=== PATIENT | male | born 1955 | race Caucasian/White ===

== ENCOUNTER 2019-11-05 13:10 | Outpatient (CLI) | payer MEDICARE, SELFPAY | END 2019-11-05 13:11 | disposition home or self-care (01) | LOC: WOUND 13:16 | PROVIDERS: Visit Provider Emergency Medicine | DX: E11.621 Type 2 diabetes mellitus with foot ulcer (principal); L97.512 Non-pressure chronic ulcer of other part of right foot with fat layer exposed | CPT/HCPCS: 11042; 87070; 87077; 87176; 87186; 87205; G0463; L3260 ==

== ENCOUNTER 2019-11-10 11:16 | Outpatient (CLI) | payer MEDICARE, SELFPAY ==
[2019-11-10 12:51] LABS: Alanine Aminotransferase 54 U/L (0-41); Albumin Level 3.8 g/dL (3.5-5.2); Alkaline Phosphatase 91 IU/L (40-130); Anion Gap 16.1 (5-19); Aspartate Amino Transferase 22 U/L (0-40); Blood Urea Nitrogen 52 mg/dL (8-23); Calcium 9.6 mg/dL (8.5-10.5); Carbon Dioxide 24 mmol/L (22-29); Chloride 103 mmol/L (98-107); Globulin 4.1 g/dL (1.3-4.6); Glomerular Filtration Rate 21.9 mL/min (90-130); Glucose 123 mg/dL (65-115); Osmolality Calculated 301 mOsm/kg (285-295); Potassium 5.1 mmol/L (3.5-5.1); Sodium 138 mmol/L (136-145); Total Bilirubin 0.3 mg/dL (0.15-1.2); Total Protein 7.9 g/dL (6.6-8.7)
[2019-11-10 13:16] LABS: Prealbumin 24.5 mg/dL (20-40)
== END 2019-11-10 11:17 | disposition home or self-care (01) ==
LOC: LAB 11:23
PROVIDERS: PCP Internal Medicine; Visit Provider Nurse Practitioner Family
DX: E11.9 Type 2 diabetes mellitus without complications (principal)
CPT/HCPCS: 36415; 80053; 84134

== ENCOUNTER 2019-11-12 13:44 | Outpatient (CLI) | payer MEDICARE, SELFPAY | END 2019-11-12 13:45 | disposition home or self-care (01) | LOC: WOUND 13:44 | PROVIDERS: PCP Internal Medicine; Visit Provider Nurse Practitioner Family | DX: E11.621 Type 2 diabetes mellitus with foot ulcer (principal); L97.412 Non-pressure chronic ulcer of right heel and midfoot with fat layer exposed | CPT/HCPCS: 11042 ==

== ENCOUNTER 2019-11-19 13:17 | Outpatient (CLI) | payer MEDICARE, SELFPAY | END 2019-11-19 13:18 | disposition home or self-care (01) | LOC: WOUND 13:18 | PROVIDERS: PCP Internal Medicine; Visit Provider Nurse Practitioner Family | DX: E11.621 Type 2 diabetes mellitus with foot ulcer (principal); L97.512 Non-pressure chronic ulcer of other part of right foot with fat layer exposed | CPT/HCPCS: 11042 ==

== ENCOUNTER 2019-12-03 13:18 | Outpatient (CLI) | payer MEDICARE, SELFPAY | END 2019-12-03 13:19 | disposition home or self-care (01) | LOC: WOUND 13:19 | PROVIDERS: PCP Internal Medicine; Visit Provider Nurse Practitioner Family | DX: E11.621 Type 2 diabetes mellitus with foot ulcer (principal); L97.412 Non-pressure chronic ulcer of right heel and midfoot with fat layer exposed | CPT/HCPCS: 11042 ==

== ENCOUNTER 2019-12-10 13:16 | Outpatient (CLI) | payer MEDICARE, SELFPAY | END 2019-12-10 13:17 | disposition home or self-care (01) | LOC: WOUND 13:17 | PROVIDERS: PCP Internal Medicine; Visit Provider Thoracic Surgery (Cardiothoracic Vascular Surgery) | DX: E11.621 Type 2 diabetes mellitus with foot ulcer (principal); L97.412 Non-pressure chronic ulcer of right heel and midfoot with fat layer exposed | CPT/HCPCS: 11042; L3260 ==

== ENCOUNTER 2019-12-17 13:58 | Outpatient (CLI) | payer MEDICARE, SELFPAY | END 2019-12-17 13:59 | disposition home or self-care (01) | LOC: WOUND 14:00 | PROVIDERS: PCP Internal Medicine; Visit Provider Thoracic Surgery (Cardiothoracic Vascular Surgery) | DX: E11.621 Type 2 diabetes mellitus with foot ulcer (principal); L97.412 Non-pressure chronic ulcer of right heel and midfoot with fat layer exposed | CPT/HCPCS: 11042 ==

== ENCOUNTER 2019-12-24 13:52 | Outpatient (CLI) | payer MEDICARE, SELFPAY | END 2019-12-24 13:53 | disposition home or self-care (01) | LOC: WOUND 13:53 | PROVIDERS: PCP Internal Medicine; Visit Provider Thoracic Surgery (Cardiothoracic Vascular Surgery) | DX: E11.621 Type 2 diabetes mellitus with foot ulcer (principal); L97.412 Non-pressure chronic ulcer of right heel and midfoot with fat layer exposed | CPT/HCPCS: 11042 ==

== ENCOUNTER 2019-12-31 13:20 | Outpatient (CLI) | payer MEDICARE, SELFPAY | END 2019-12-31 13:21 | disposition home or self-care (01) | LOC: WOUND 13:22 | PROVIDERS: PCP Internal Medicine; Visit Provider Thoracic Surgery (Cardiothoracic Vascular Surgery) | DX: E11.621 Type 2 diabetes mellitus with foot ulcer (principal); L97.512 Non-pressure chronic ulcer of other part of right foot with fat layer exposed | CPT/HCPCS: 11042 ==

== ENCOUNTER 2020-01-14 13:04 | Outpatient (CLI) | payer MEDICARE, SELFPAY | END 2020-01-14 13:05 | disposition home or self-care (01) | LOC: WOUND 13:05 | PROVIDERS: PCP Internal Medicine; Visit Provider Nurse Practitioner Family | DX: E11.621 Type 2 diabetes mellitus with foot ulcer (principal); L97.412 Non-pressure chronic ulcer of right heel and midfoot with fat layer exposed | CPT/HCPCS: 11042 ==

== ENCOUNTER 2020-01-21 13:09 | Outpatient (CLI) | payer MEDICARE, SELFPAY | END 2020-01-21 13:10 | disposition home or self-care (01) | LOC: WOUND 13:10 | PROVIDERS: PCP Internal Medicine; Visit Provider Thoracic Surgery (Cardiothoracic Vascular Surgery) | DX: E11.621 Type 2 diabetes mellitus with foot ulcer (principal); L97.412 Non-pressure chronic ulcer of right heel and midfoot with fat layer exposed | CPT/HCPCS: 97597 ==

== ENCOUNTER 2020-02-04 13:06 | Outpatient (CLI) | payer MEDICARE, SELFPAY | END 2020-02-04 13:07 | disposition home or self-care (01) | LOC: WOUND 13:06 | PROVIDERS: PCP Internal Medicine; Visit Provider Thoracic Surgery (Cardiothoracic Vascular Surgery) | DX: Z09 Encounter for follow-up examination after completed treatment for conditions other than malignant neoplasm (principal) | CPT/HCPCS: 99212; L3260 ==